=== PATIENT | male | born 1970 | race Hispanic/Latino ===

== ENCOUNTER 2016-10-27 13:05 | Outpatient (CLI) | payer BC ==
[2016-10-27 13:40] LABS: #Basophils 0.1 thou/uL (0.0-0.2); #Eosinphils 0.4 thou/uL (0.0-0.7); #Lymphocytes 1.8 thou/uL (1.20-3.40); #Monocytes 0.7 thou/uL (0.11-0.59); #Neutrophils 3.7 thou/uL (1.40-6.50); %Basophils 1.7 % (0.0-1.0); %Eosinophils 5.9 % (0.0-10.0); %Monocytes 9.7 % (0.0-10.0); Hematocrit 52.7 % (42.0-52.0); Mean Platelet Volume 5.7 fL (7.4-10.4); White Blood Cell (WBC) Count 6.7 thou/uL (4.8-10.8)
[2016-10-27 13:49] LABS: ALT (SGPT) 29 U/L (0-55); AST (SGOT) 19 U/L (5-34); Alkaline Phosphatase 83 U/L (40-150); Anion Gap 19 mmol/L (10-20); BUN (Urea Nitrogen) 13 mg/dL (8.9-20.6); Bilirubin, Total 0.9 mg/dL (0.2-1.2); Calc. Creatinine Clearance 0 mL/min (70-130); Calcium 9.6 mg/dL (7.8-10.44); Carbon Dioxide 26 mmol/L (22-29); Chloride 101 mmol/L (98-107); Estimated GFR-MDRD Greater than 90; Globulin 3.5 g/dL (2.4-3.5); LDL Cholesterol, Calculated 190 mg/dL
[2016-10-27 13:53] LABS: Hemoglobin A1c 6.2 % (4.0-6.0)
[2016-10-27 18:36] LABS: Microalbumin Urine 7.2 mg/dL (0.5-50.0)
== END 2016-10-27 13:06 ==
LOC: HPCALD 13:05
PROVIDERS: ATTEND Family Medicine
DX: E11.59 Type 2 diabetes mellitus with other circulatory complications (principal); I10 Essential (primary) hypertension
CPT/HCPCS: 36415; 80053; 80061; 82043; 82570; 83036; 84443; 85025

== ENCOUNTER 2016-11-03 10:24 | Outpatient (CLI) | payer BC ==
--- NOTE | 2016-11-03 14:15 | MRI ---
MRI OF THE LEFT KNEE WITHOUT CONTRAST: INDICATION: Left knee sprain. COMPARISON: None. FINDINGS: There is a grade II sprain involving the proximal aspect of the MCL. There is a focal contusion inv olving the posterior lateral femoral condyle. The ACL, PCL, LCLC, and extensor mechanism are intact. The medial and lateral menisci are intact. There is mild chondrosis involving the patellar facet on image 21 of the axial series without eviden ce of full-thickness defect. Articular cartilage of the femorotibial compartment appears relatively well maintained. IMPRESSION: 1. Grade II proximal medial collateral ligament sprain. 2. Contusion involving the posterior lateral femoral condyle. 3. The anterior cruciate ligament, posterior cruciate ligament, LCLC, and extensor mechanism are in tact. 4. Medial and lateral menisci are intact. POS: [facility]
== END 2016-11-03 10:25 | disposition home or self-care (01) ==
LOC: BURMRI 10:24
PROVIDERS: ATTEND Family Medicine
DX: S83.92XD Sprain of unspecified site of left knee, subsequent encounter (principal); S83.412D Sprain of medial collateral ligament of left knee, subsequent encounter; S80.02XD Contusion of left knee, subsequent encounter

== ENCOUNTER 2016-11-30 11:48 | Inpatient (IN) | payer BC ==
[2016-11-30] MEDS ORDERED: Ondansetron HCl/PF 4 MG/2 ML Vial ONE (12:04)
[2016-11-30] MEDS ORDERED: Famotidine In NaCl 20 mg/50 ml Premix Bag ONE (12:05)
[2016-11-30 12:24] LABS: Hematocrit 58.2 % (42.0-52.0); Mean Platelet Volume 6.5 fL (7.4-10.4); Red Blood Cell (RBC) Count 6.63 mill/uL (4.70-6.10); White Blood Cell (WBC) Count 10.1 thou/uL (4.8-10.8)
[2016-11-30 12:35] LABS: ALT (SGPT) 78 U/L (0-55); AST (SGOT) 66 U/L (5-34); Alkaline Phosphatase 108 U/L (40-150); Anion Gap 25 mmol/L (10-20); BUN (Urea Nitrogen) 20 mg/dL (8.9-20.6); Bilirubin, Total 0.9 mg/dL (0.2-1.2); Calc. Creatinine Clearance 0 mL/min (70-130); Calcium 9.3 mg/dL (7.8-10.44); Carbon Dioxide 14 mmol/L (22-29); Chloride 95 mmol/L (98-107); Estimated GFR-MDRD 46; Globulin 4.9 g/dL (2.4-3.5); Lipase 98 U/L (8-78); Protein, Total 9.6 g/dL (6.0-8.3)
[2016-11-30 12:47] LABS: Neutrophil 67 % (42-75)
[2016-11-30 13:07] LABS: Troponin I Less than 0.010 ng/mL (< 0.028)
[2016-11-30 13:31] LABS: Lactic Acid - Sepsis 2.2 mmol/L (0.5-2.2)
[2016-11-30 13:34] LABS: Bilirubin Negative (Negative); Blood, Urine Moderate (Negative); Glucose, Urine (Dipstick) >=1000 mg/dL (Negative); Ketone, Urine Negative (Negative); Nitrite Negative (Negative); Protein, Urine (Dipstick) 30 mg/dL (Neg-Trace); Urobilinogen 0.2 mg/dL (0.2-1.0)
[2016-11-30 13:52] LABS: Bacteria/HPF None Seen HPF (None Seen); Squamous Epithelial 0-3 HPF (0-3); WBC/HPF None Seen HPF (0-3)
[2016-11-30] MEDS ORDERED: Potassium Chloride 20 MEQ/100 ML PREMIX BAG ONE (14:06)
[2016-11-30] MEDS ORDERED: Thiamine HCl 200 MG/2 ML VIAL ONE (15:14)
[2016-11-30] MEDS ORDERED: Ciprofloxacin Lactate/D5W 400 mg/200 ml Premix ONE (15:24)
[2016-11-30] MEDS ORDERED: FLU VACC QS2016-17 36MOS UP/PF 0.5 ML SYRINGE IM ONE (16:45)
[2016-11-30] MEDS ORDERED: Ondansetron ODT 4 MG TAB SL PRN (16:46)
[2016-11-30] MEDS ORDERED: Acetaminophen 325 MG TAB PO PRN (16:46)
[2016-11-30] MEDS ORDERED: Ondansetron HCl/PF 4 MG/2 ML Vial IVP PRN (16:46)
[2016-11-30] MEDS ORDERED: HumaLOG 300 UNITS/3 ML VIAL SC PRN (18:26)
[2016-11-30] MEDS ORDERED: Dextrose 50% Abboject 50 ML SYRINGE SLOW IVP PRN (18:26)
[2016-11-30] MEDS ORDERED: Dextrose 5% in Water 1,000 ML IV PRN (18:26)
[2016-11-30] MEDS: NS 0.9% w/ 20 MEQ KCL 1,000 ML IV SCH (19:47)
[2016-11-30] MEDS: Carvedilol 3.125 MG TAB PO SCH (20:53)
[2016-11-30 21:29] LABS: Anion Gap 14 mmol/L (10-20)
[2016-11-30 21:35] LABS: ALT (SGPT) 47 U/L (0-55); AST (SGOT) 33 U/L (5-34); Alkaline Phosphatase 66 U/L (40-150); BUN (Urea Nitrogen) 13 mg/dL (8.9-20.6); Bilirubin, Total 0.7 mg/dL (0.2-1.2); Calc. Creatinine Clearance 0 mL/min (70-130); Calcium 7.4 mg/dL (7.8-10.44); Carbon Dioxide 18 mmol/L (22-29); Chloride 108 mmol/L (98-107); Estimated GFR-MDRD Greater than 90; Protein, Total 6.3 g/dL (6.0-8.3)
[2016-11-30 22:01] LABS: #Basophils 0.1 thou/uL (0.0-0.2); #Eosinphils 0.2 thou/uL (0.0-0.7); Hematocrit 40.7 % (42.0-52.0); Mean Platelet Volume 6.3 fL (7.4-10.4); Red Blood Cell (RBC) Count 4.78 mill/uL (4.70-6.10); White Blood Cell (WBC) Count 7.2 thou/uL (4.8-10.8)
[2016-11-30 22:05] LABS: #Monocytes 1.3 thou/uL (0.11-0.59); #Neutrophils 3.5 thou/uL (1.40-6.50); %Basophils 1.6 % (0.0-1.0); %Eosinophils 2.9 % (0.0-10.0); %Monocytes 17.4 % (0.0-10.0)
[2016-11-30 22:34] LABS: Lipase 26 U/L (8-78)
[2016-11-30 23:06] LABS: Bilirubin Negative (Negative); Blood, Urine Small (Negative); Glucose, Urine (Dipstick) 500 mg/dL (Negative); Ketone, Urine Negative (Negative); Nitrite Negative (Negative); Protein, Urine (Dipstick) Negative (Neg-Trace); Urobilinogen 0.2 mg/dL (0.2-1.0)
[2016-11-30 23:16] LABS: RBC/HPF 0-3 HPF (0-3); Squamous Epithelial 0-3 HPF (0-3); WBC/HPF 0-3 HPF (0-3)
[2016-11-30 23:17] LABS: Bacteria/HPF Rare-Few HPF (None Seen)
[2016-12-01] MEDS: NS 0.9% w/ 20 MEQ KCL 1,000 ML IV SCH ×5 (02:58→15:42)
[2016-12-01 06:18] LABS: #Basophils 0.1 thou/uL (0.0-0.2); #Eosinphils 0.3 thou/uL (0.0-0.7); #Lymphocytes 2.4 thou/uL (1.20-3.40); #Monocytes 0.9 thou/uL (0.11-0.59); #Neutrophils 2.4 thou/uL (1.40-6.50); %Eosinophils 4.8 % (0.0-10.0); %Monocytes 14.8 % (0.0-10.0); Hematocrit 38.8 % (42.0-52.0); Mean Platelet Volume 6.6 fL (7.4-10.4); White Blood Cell (WBC) Count 6.1 thou/uL (4.8-10.8)
[2016-12-01 06:59] LABS: ALT (SGPT) 43 U/L (0-55); AST (SGOT) 35 U/L (5-34); Alkaline Phosphatase 63 U/L (40-150); Anion Gap 14 mmol/L (10-20); BUN (Urea Nitrogen) 11 mg/dL (8.9-20.6); Bilirubin, Total 0.8 mg/dL (0.2-1.2); Calc. Creatinine Clearance 0 mL/min (70-130); Calcium 7.5 mg/dL (7.8-10.44); Carbon Dioxide 22 mmol/L (22-29); Chloride 104 mmol/L (98-107); Estimated GFR-MDRD Greater than 90; Globulin 2.5 g/dL (2.4-3.5); Protein, Total 5.6 g/dL (6.0-8.3)
[2016-12-01] MEDS: Lisinopril 10 MG TAB PO SCH (09:09)
[2016-12-01] MEDS: Carvedilol 3.125 MG TAB PO SCH ×2 (09:09→21:25)
[2016-12-01] MEDS: VENLAFAXINE HCL 25 MG PO SCH (09:13)
[2016-12-01] MEDS: HumaLOG 300 UNITS/3 ML VIAL SC PRN ×2 (12:32→18:41)
--- NOTE | 2016-12-01 13:32 | HP ---
CHIEF COMPLAINT: Nausea and vomiting. HISTORY OF PRESENT ILLNESS: Mr. Lin is a 46-year-old male who presented to the emergency room with several days of onset of nausea, vomiting and diarrhea. The patient states that on approximately 11/26, he started with some abdominal cramping and vomiting and diarrhea, specifically after eating. This progressed to the point where he was dehydrated and lethargic with generalized weakness. In the ER, he was found to be grossly dehydrated with electrolyte abnormalities and concentrated hematocrit. Therefore, the patient has been admitted with clinical suspicion of infectious gastroenteritis. Besides generalized abdominal cramping after meals, the patient has had no abdominal pain. He denied hematochezia or melena. No hematemesis or bilious emesis. He has been afebrile throughout the episode. Other than his GI complaints, the patient denies any other concurrent complaints. PAST MEDICAL HISTORY: 1. Cardiomyopathy. 2. Type 2 diabetes. 3. Diabetic neuropathy. 4. Hyperlipidemia. 5. Gastroesophageal reflux disease. 6. Essential hypertension. 7. Erectile dysfunction. 8. Allergic rhinitis. 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 FAMILY HISTORY: Father is living with a history of diabetes, hypertension and coronary artery disease. Mother is living with a history of diabetes and hypertension. The patient has a brother with diabetes and a sister with diabetes. SOCIAL HISTORY: The patient is a nonsmoker. He has occasional alcohol use, 3- 4 drinks per episode with zero occasions of 6 or more drinks in one occasion in the past year. No illicit drug use. 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 MEDICATIONS: 1. Aspirin 81 mg p.o. q. day. 2. Carvedilol 3.125 mg p.o. b.i.d. 3. Atorvastatin 20 mg p.o. q. day. 4. Farxiga 10 mg p.o. at bedtime. 5. Dicyclomine 10 mg p.o. b.i.d. 6. Effexor 25 mg p.o. q. day. 7. Metformin 500 mg p.o. b.i.d. ALLERGIES: No known drug allergies. REVIEW OF SYSTEMS: GENERAL: The patient denies fever. Positive fatigue/lethargy/sweating. No chills. 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 No increase in blurred vision or visual disturbances. Denies eye pain. The patient denies nasal congestion, sore throat or ear pain. CARDIOVASCULAR: The patient denies chest pain, orthopnea, paroxysmal nocturnal dyspnea or dyspnea on exertion. RESPIRATORY: The patient denies cough, hemoptysis, sputum production, positive allergies. Denies sneezing. Denies shortness of breath. GASTROINTESTINAL: As per HPI. Denies constipation. GENITOURINARY: Decreased urinary amounts. Decreased urinary frequency since the episode. Denies dysuria, symptoms of incomplete emptying or gross hematuria. LYMPHATIC: The patient denies swelling. HEMATOLOGIC: The patient denies bleeding or bruising. NEUROLOGIC: Denies numbness, paresthesias, focal weakness, speech disturbance. PHYSICAL EXAMINATION: VITAL SIGNS: Temperature is 98.7, heart rate 70, respirations 20, O2 sat 99% on room air and blood pressure 131/83. GENERAL: A well-developed, well-nourished male, in no acute distress. He is alert and oriented x3. HEENT: A nucleated right eye. Left pupil is reactive to light. Nares are patent without discharge. Tongue protrudes on the midline. NECK: Supple, without lymphadenopathy, thyromegaly, JVD or bruit. HEART: Regular rate and rhythm. Normal S1 and S2. No murmurs, clicks, rubs or gallops. LUNGS: Clear to auscultation with good air entry bilaterally. No crackles or wheezes. ABDOMEN: Hyperactive bowel sounds in all four quadrants. Soft, slightly distended and slightly tense. No masses, guarding or rebound tenderness. EXTREMITIES: No cyanosis, clubbing or edema. NEUROLOGIC: Cranial nerves II-XII are grossly intact. No focal deficits. LABORATORY DATA: CBC on admission, white count 10.1, hemoglobin 20.9, hematocrit 58.2 , platelets 347, 67% neutrophils, 19% lymphocytes, 8% monocytes , 3% eosinophils and 3% basophils. Sodium 137, potassium 2.6, chloride 108, bicarbonate 18, BUN 13, creatinine 0.87, glucose 118, AST 33, ALT 47, alkaline phosphatase 66, CK-MB 0.7 and troponin I less than 0.01, BNP 11.1. Urinalysis is significant for 30 protein, greater than 1000 glucose, negative ketones and moderate blood. Repeat urinalysis later in the afternoon is significant for 500 glucose and small blood, otherwise negative. C. diff is negative. Stool occult blood negative. Stool culture still in progress, Campylobacter and Shiga toxin are negative. Giardia is negative. Cryptosporidium parvum is positive. Repeat lab this morning at 6:00 a.m., white count 6.1, hemoglobin 13.9, hematocrit 38.8 and platelets 214. Sodium 137, potassium 2.9, chloride 104, bicarbonate 22, BUN 11 and creatinine 0.85, glucose 111, AST 35, ALT 43 and alkaline phosphatase 63. ASSESSMENT AND PLAN: 1. Cryptosporidium infectious gastroenteritis. The patient was hydrated with 3 liters of normal saline in the Emergency Department with correction of his hemoglobin and hematocrit. Potassium was put in his normal saline IV infusion overnight at 125 mL per hour. We will cut this back this morning to 100 mL per hour. We will introduce clear liquids as the patient is feeling slightly better this morning. He was kept n.p.o. overnight. If he does not tolerate this, we will return to n.p.o. except meds. We will obtain acute abdominal series due to his tense abdomen. We will treat his nausea, vomiting and diarrhea with antiemetics and antidiarrheal agents. We will treat his infection appropriately. He was started on Cipro overnight. His treatment will be directed more specifically toward Cryptosporidium. The patient at this time is not aware of where he may have contracted this. We will follow reporting procedures per protocol. We will place the patient on Protonix 40 mg daily. We will continue to follow blood cultures. 2. Hyponatremia and hypokalemia. This is due to GI losses. His sodium corrected. Potassium will continue through his IV fluids until he can tolerate oral. Will recheck BMP in a.m. 3. Type 2 diabetes. The patient's Farxiga and metformin will be held. He was placed on a sliding scale mild and bedtime algorithm with Accu-Cheks q.a.c. and at bedtime. We will monitor his glucose closely. We will advance to an ADA diet when appropriate. 4. Cardiomyopathy. The patient's aspirin and beta nakul will be continued. 5. Hyperlipidemia. The patient's statin will be continued. 6. Gastroesophageal reflux disease. Proton pump inhibitor as per above. 7. Prophylaxis. Proton pump inhibitor as per above. The patient is currently ambulatory, so no deep venous thrombosis prophylaxis is indicated at this time. CODE STATUS: FULL CODE. MTDD
--- NOTE | 2016-12-01 19:48 | RAD ---
ACUTE ABDOMEN SERIES: Date: 12-01-16 FINDINGS: Supine and erect views show no free air beneath the diaphragm. There is no sign of obstruction. Ga s is present in colon and in minimally distended small bowel. The pattern is nonspecific and more t ypical of an ileus than obstruction. There is abundant fecal material in the colon and the colon it self seems somewhat redundant. Clips are noted in the right upper quadrant from a prior operative p rocedure. No calcifications of concern were seen elsewhere. A chest film in the series is compared with a 09-08-16 study. The heart is normal in size and the l ungs are clear. IMPRESSION: Nonspecific abdominal finding. POS: HOME
[2016-12-01] MEDS ORDERED: ALINIA PO SCH (21:00)
[2016-12-02] MEDS: NS 0.9% w/ 20 MEQ KCL 1,000 ML IV SCH ×2 (01:28→04:11)
[2016-12-02 06:15] VITALS: TEMP 97.5
[2016-12-02 06:24] LABS: #Basophils 0.1 thou/uL (0.0-0.2); #Eosinphils 0.4 thou/uL (0.0-0.7); #Lymphocytes 2.5 thou/uL (1.20-3.40); #Monocytes 0.8 thou/uL (0.11-0.59); #Neutrophils 1.7 thou/uL (1.40-6.50); %Basophils 1.6 % (0.0-1.0); %Eosinophils 6.7 % (0.0-10.0); %Monocytes 14.3 % (0.0-10.0); Hematocrit 38.7 % (42.0-52.0); Red Blood Cell (RBC) Count 4.36 mill/uL (4.70-6.10); White Blood Cell (WBC) Count 5.3 thou/uL (4.8-10.8)
[2016-12-02 06:54] LABS: Anion Gap 12 mmol/L (10-20); BUN (Urea Nitrogen) 7 mg/dL (8.9-20.6); Calc. Creatinine Clearance 0 mL/min (70-130); Calcium 8.2 mg/dL (7.8-10.44); Carbon Dioxide 26 mmol/L (22-29); Chloride 105 mmol/L (98-107); Estimated GFR-MDRD Greater than 90
[2016-12-02] MEDS: Lisinopril 10 MG TAB PO SCH (09:47)
[2016-12-02] MEDS: Carvedilol 3.125 MG TAB PO SCH ×2 (09:47→21:52)
[2016-12-02] MEDS: VENLAFAXINE HCL 25 MG PO SCH (12:34)
[2016-12-02] MEDS ORDERED: Potassium Chloride 20 MEQ TAB PO SCH (12:45)
[2016-12-02] MEDS: HumaLOG 300 UNITS/3 ML VIAL SC PRN (13:57)
[2016-12-02 22:39] VITALS: BMI 27.3
[2016-12-03 06:27] VITALS: BP 110/70
[2016-12-03] MEDS: Lisinopril 10 MG TAB PO SCH (09:05)
[2016-12-03] MEDS: Carvedilol 3.125 MG TAB PO SCH (09:07)
[2016-12-03] MEDS: HumaLOG 300 UNITS/3 ML VIAL SC PRN ×2 (09:09→13:20)
[2016-12-03] MEDS: VENLAFAXINE HCL 25 MG PO SCH (09:13)
[2016-12-03 09:24] LABS: Anion Gap 13 mmol/L (10-20); BUN (Urea Nitrogen) 8 mg/dL (8.9-20.6); Calc. Creatinine Clearance 125 mL/min (70-130); Calcium 9.2 mg/dL (7.8-10.44); Carbon Dioxide 30 mmol/L (22-29); Chloride 101 mmol/L (98-107); Estimated GFR-MDRD Greater than 90
[2016-12-03 13:20] LABS: Anion Gap 12 mmol/L (10-20); BUN (Urea Nitrogen) 7 mg/dL (8.9-20.6); Calc. Creatinine Clearance 132 mL/min (70-130); Carbon Dioxide 28 mmol/L (22-29); Chloride 102 mmol/L (98-107); Estimated GFR-MDRD Greater than 90
--- NOTE | 2016-12-03 20:58 | DIS ---
DATE OF ADMISSION: 11/30/2016 DATE OF DISCHARGE: 12/03/2016 ADMISSION DIAGNOSES: 1. Acute gastroenteritis. 2. Hyponatremia. 3. Hypokalemia. 4. Chronic type 2 diabetes. 5. Chronic cardiomyopathy. 6. Chronic hypertension. DISCHARGE DIAGNOSES: 1. Gastroenteritis due to cryptosporidium. 2. Dehydration with hyponatremia, resolved. 3. Hypokalemia due to gastrointestinal losses, improving. 4. Chronic type 2 diabetes. 5. Chronic cardiomyopathy. 6. Chronic hypertension. ATTENDING PHYSICIAN: Dr. Nahomy Ring. PROCEDURES: 1. Acute abdominal series performed on 12/01/2016, which showed nonspecific abdominal findings. 2. Chemistry profile on the date of admission sodium 131, potassium 2.8, bicarbonate 14, chloride 9 5, BUN 20, creatinine 1.64, glucose 288, calcium 9.3. AST 66, ALT 78, alkaline phosphatase 108, lip ase 98, BNP 11.1. Troponin I is less than 0.01, CK-MB is 0.7, lactic acid 2.2. Repeat lactic acid 11/30 is 1.3. 3. Liver function test 11/30 improved to 33 and 47. 4. Urinalysis initially significant for 30 protein, greater than 1000 glucose, moderate blood. Rep eat urinalysis later on the date of admission with 500 glucose and small blood. Negative ketones. 5. Human immunodeficiency virus 1 and 2 antigen and antibody nonreactive on 12/01. 6. CBC on the date of admission with white count 10.1, hemoglobin 20.9, hematocrit 58.2, platelets 347. 7. Repeat CBC on 12/02, the day prior to discharge was white count 5.3, hemoglobin 14.3, hematocrit 38.7, platelets 217. 8. Chemistry profile on the date of discharge sodium 141, potassium 2.8, chloride 101, bicarbonate 30, BUN 8 and creatinine 0.85. HISTORY AND PHYSICAL EXAMINATION: Please see dictated report from the date of admission. HOSPITAL COURSE: Mr. Lin is a 46-year-old male with past medical history of cardiomyopathy, hy pertension, and type 2 diabetes that is not insulin-dependent, who presented to the ER with approxim ately 4-5 days of continuous nausea, vomiting, and diarrhea. He was found to be severely volume con tracted with elevated hemoglobin and hematocrit, hyponatremia with sodium of 131, and hypokalemia wi th potassium of 2.8 secondary to his gastrointestinal losses. The patient was given IV fluid bolus in the ER, which corrected his renal dysfunction in his hyponatremia. This was continued through ho tal day #3 and potassium was added for his hypokalemia. His potassium subsequently improved to 3 .1. However, it decreased to 2.8 without oral supplementation on 12/03. Therefore, the patient claudine l be getting an additional dose of potassium prior to his discharge. We will repeat his metabolic p rofile. If his potassium is improving, he will be discharged to home with oral potassium and in ord er to repeat his metabolic profile in my clinic later this week. Of note, throughout the patient's hospital course, his vomiting and diarrhea improved. Stool studie s came back negative for C. Diff, negative for Shigella. Normal enteric luci per culture. Fecal o ccult blood negative. Stool O\T\P were significant for Cryptosporidium parvum. Negative for Giardi a. I spoke with the Infectious Disease, it was recommended that the patient be started on Alinia. At the time of his discharge, he has received 4 tablets out of his 6 tablet treatment course, which was twice a day for 3 days. He will finish this as an outpatient. His nausea has completely resolv ed. His acute abdominal series showed nonspecific abdominal findings. He does have some formed sto ol prior to his discharge. He initially was on clear liquids and this has been advanced to a regula r diet without difficulty. Regarding his diabetes, the patient's glucose was stable throughout his admission. His metformin an d Farxiga were held due to his gastrointestinal distress. Now that this is resolved, these medicati ons can be resumed as an outpatient. Patient with history of cardiomyopathy, but experienced no respiratory abnormalities or signs of flu id overload despite copious IV fluid resuscitation. He will resume his home regimen at discharge. DISPOSITION: Discharged to home following a repeat basic metabolic profile after another dose of po tassium today. CONDITION: Good. DISCHARGE MEDICATIONS: 1. Carvedilol 6.25 mg p.o. b.i.d. 2. Bentyl 10 mg p.o. b.i.d. 3. Lisinopril 10 mg p.o. daily. 4. Glucophage 500 mg p.o. b.i.d. 5. Alinia 500 mg p.o. b.i.d. to complete a 3-day course. 6. Zofran ODT 4 mg sublingually q.6 hours p.r.n. 7. Effexor XR 25 mg daily. 8. Aspirin 81 mg p.o. daily. 9. Lipitor 20 mg p.o. daily. 10. Farxiga 10 mg p.o. at bedtime. 11. K-Dur 40 mEq p.o. daily x3 days. FOLLOWUP: Will be with me Dr. Nahomy Ring his primary care physician in approximately 7 days. He will present to clinic on 12/05 for repeat basic metabolic profile to check his potassium.
== END 2016-12-03 15:00 | disposition home or self-care (01) | DRG 372 ==
LOC: BURERS 11:48 → BURMED 14:55
PROVIDERS: ADMIT Family Medicine; ATTEND Family Medicine
DX: A07.2 Cryptosporidiosis (principal); E87.1 Hypo-osmolality and hyponatremia; I42.9 Cardiomyopathy, unspecified; E11.40 Type 2 diabetes mellitus with diabetic neuropathy, unspecified; E86.0 Dehydration; E87.6 Hypokalemia; I10 Essential (primary) hypertension; E78.5 Hyperlipidemia, unspecified; K21.9 Gastro-esophageal reflux disease without esophagitis; J30.9 Allergic rhinitis, unspecified; N52.9 Male erectile dysfunction, unspecified; N28.9 Disorder of kidney and ureter, unspecified
CPT/HCPCS: 36415; 36416; 74022; 80048; 80053; 81003; 81015; 82274; 82553; 83605; 83690; 83880; 84484; 85025; 87015; 87045; 87046; 87324; 87328; 87329; 87389; 87449; 87899; 96361; 96365; 96367; 96375; A4216; J0744; J2405; J3411; J3480

== ENCOUNTER 2016-12-08 10:30 | Outpatient (CLI) | payer BC ==
[2016-12-08 12:21] LABS: ALT (SGPT) 46 U/L (0-55); AST (SGOT) 28 U/L (5-34); Alkaline Phosphatase 92 U/L (40-150); Bilirubin, Direct 0.2 mg/dL (0.1-0.3); Bilirubin, Total 0.6 mg/dL (0.2-1.2); LDL Cholesterol, Calculated 98 mg/dL; Protein, Total 7.6 g/dL (6.0-8.3)
[2016-12-08 13:47] LABS: Anion Gap 17 mmol/L (10-20); BUN (Urea Nitrogen) 11 mg/dL (8.9-20.6); Calc. Creatinine Clearance 0 mL/min (70-130); Calcium 9.8 mg/dL (7.8-10.44); Carbon Dioxide 28 mmol/L (22-29); Chloride 100 mmol/L (98-107); Estimated GFR-MDRD Greater than 90
== END 2016-12-08 10:31 | disposition home or self-care (01) ==
LOC: HPCALD 10:30
PROVIDERS: ATTEND Family Medicine
DX: E78.2 Mixed hyperlipidemia (principal)
CPT/HCPCS: 36415; 80048; 80061; 80076

== ENCOUNTER 2017-08-08 21:13 | Emergency (ER) | payer BC, OTHER ==
[2017-08-08] MEDS ORDERED: Ibuprofen 800 MG TAB ONE (21:38)
[2017-08-08] MEDS ORDERED: HYDROcodone/Acetaminophen 10/325 mg Tablet ONE (21:38)
--- NOTE | 2017-08-08 23:06 | RAD ---
LEFT LEG TWO VIEWS 08/08/17 No fracture was seen. The tibia and fibula appear normal. No traumatic changes were seen. IMPRESSION: No significant findings. POS: HOME
== END 2017-08-08 22:13 | disposition home or self-care (01) ==
LOC: BURERS 21:13
DX: S80.02XA Contusion of left knee, initial encounter (principal); E11.9 Type 2 diabetes mellitus without complications; K21.9 Gastro-esophageal reflux disease without esophagitis; E78.5 Hyperlipidemia, unspecified; I11.0 Hypertensive heart disease with heart failure; I50.9 Heart failure, unspecified; F17.220 Nicotine dependence, chewing tobacco, uncomplicated; Z79.82 Long term (current) use of aspirin; Z79.84 Long term (current) use of oral hypoglycemic drugs; Z79.899 Other long term (current) drug therapy; W31.89XA Contact with other specified machinery, initial encounter; Y92.69 Other specified industrial and construction area as the place of occurrence of the external cause

== ENCOUNTER 2017-11-24 18:12 | Emergency (ER) | payer BC | END 2017-11-24 18:40 | disposition home or self-care (01) | LOC: BURERS 18:12 | DX: F41.9 Anxiety disorder, unspecified (principal); G44.209 Tension-type headache, unspecified, not intractable; E11.9 Type 2 diabetes mellitus without complications; K21.9 Gastro-esophageal reflux disease without esophagitis; E78.5 Hyperlipidemia, unspecified; I11.0 Hypertensive heart disease with heart failure; I50.9 Heart failure, unspecified; F17.220 Nicotine dependence, chewing tobacco, uncomplicated; Z79.82 Long term (current) use of aspirin; Z79.84 Long term (current) use of oral hypoglycemic drugs; Z79.899 Other long term (current) drug therapy | CPT/HCPCS: 99283 ==

== ENCOUNTER 2018-05-14 21:21 | Emergency (ER) | payer BC ==
[2018-05-14] MEDS ORDERED: Amoxicillin/Potassium Clav 875 MG TAB ONE (21:36)
[2018-05-14] MEDS ORDERED: traMADol HCl 50 MG TAB ONE (21:38)
--- NOTE | 2018-05-14 22:58 | RAD ---
LEFT FOOT THREE VIEWS: 05/04/18 No fracture or dislocation was seen. the toes all appeared intact. There were no bony destructive le david of the toes to suggest osteomyelitis. IMPRESSION: No acute bony finding. POS: HOME
== END 2018-05-14 22:10 | disposition home or self-care (01) ==
LOC: BURERS 21:21
DX: S90.32XA Contusion of left foot, initial encounter (principal); L03.032 Cellulitis of left toe; I11.0 Hypertensive heart disease with heart failure; I50.9 Heart failure, unspecified; E78.5 Hyperlipidemia, unspecified; E11.9 Type 2 diabetes mellitus without complications; K21.9 Gastro-esophageal reflux disease without esophagitis; F17.220 Nicotine dependence, chewing tobacco, uncomplicated; F41.9 Anxiety disorder, unspecified; F32.9 Major depressive disorder, single episode, unspecified; Z79.899 Other long term (current) drug therapy; Z79.84 Long term (current) use of oral hypoglycemic drugs; Z79.82 Long term (current) use of aspirin; X50.1XXA Overexertion from prolonged static or awkward postures, initial encounter

== ENCOUNTER 2018-05-27 21:54 | Emergency (ER) | payer BC | END 2018-05-27 22:22 | disposition home or self-care (01) | LOC: BURERS 21:54 | DX: S92.501A Displaced unspecified fracture of right lesser toe(s), initial encounter for closed fracture (principal); E11.9 Type 2 diabetes mellitus without complications; K21.9 Gastro-esophageal reflux disease without esophagitis; E78.5 Hyperlipidemia, unspecified; I11.0 Hypertensive heart disease with heart failure; I50.9 Heart failure, unspecified; F41.9 Anxiety disorder, unspecified; F32.9 Major depressive disorder, single episode, unspecified; Z79.899 Other long term (current) drug therapy; Z79.82 Long term (current) use of aspirin; Z79.84 Long term (current) use of oral hypoglycemic drugs; W22.8XXA Striking against or struck by other objects, initial encounter | CPT/HCPCS: 99283 ==

== ENCOUNTER 2018-08-06 16:00 | Emergency (ER) | payer BC ==
[2018-08-06] MEDS ORDERED: Ibuprofen 200 MG TAB ONE (16:17)
--- NOTE | 2018-08-06 17:31 | RAD ---
LEFT HUMERUS TWO VIEWS: 08/06/18 No fracture was seen. The humerus appeared intact. IMPRESSION: No acute finding. POS: HOME
== END 2018-08-06 16:33 | disposition home or self-care (01) ==
LOC: BURERS 16:00
DX: S46.912A Strain of unspecified muscle, fascia and tendon at shoulder and upper arm level, left arm, initial encounter (principal); F41.9 Anxiety disorder, unspecified; F32.9 Major depressive disorder, single episode, unspecified; K21.9 Gastro-esophageal reflux disease without esophagitis; E78.5 Hyperlipidemia, unspecified; I11.0 Hypertensive heart disease with heart failure; I50.9 Heart failure, unspecified; Z79.84 Long term (current) use of oral hypoglycemic drugs; Z79.899 Other long term (current) drug therapy; X50.1XXA Overexertion from prolonged static or awkward postures, initial encounter

== ENCOUNTER 2018-08-31 08:56 | Emergency (ER) | payer BC, OTHER, SELFPAY ==
[2018-08-31] MEDS ORDERED: Ketorolac Tromethamine 60 MG/2 ML VIAL ONE (09:14)
[2018-08-31] MEDS ORDERED: Acetaminophen/Codeine 30-300mg Tablet ONE (09:14)
--- NOTE | 2018-08-31 09:43 | RAD ---
3 VIEWS LEFT FOOT: Date: 08/31/18 COMPARISON: 05/14/18. HISTORY: Trauma. Crush injury. FINDINGS: Lisfranc alignment is maintained. There is soft tissue swelling. There are fractures involving the pr oximal aspect of the proximal phalanx of the third digit. There are fractures along the third and fif th metatarsals. IMPRESSION: Multiple fractures involving the left foot. POS: [facility]
== END 2018-08-31 10:05 | disposition home or self-care (01) ==
LOC: BURERS 08:56
DX: S92.335A Nondisplaced fracture of third metatarsal bone, left foot, initial encounter for closed fracture (principal); S92.355A Nondisplaced fracture of fifth metatarsal bone, left foot, initial encounter for closed fracture; E11.9 Type 2 diabetes mellitus without complications; I11.0 Hypertensive heart disease with heart failure; I50.9 Heart failure, unspecified; K21.9 Gastro-esophageal reflux disease without esophagitis; E78.5 Hyperlipidemia, unspecified; F32.9 Major depressive disorder, single episode, unspecified; Z87.891 Personal history of nicotine dependence; Z79.899 Other long term (current) drug therapy; Z79.82 Long term (current) use of aspirin; Z79.84 Long term (current) use of oral hypoglycemic drugs; W20.8XXA Other cause of strike by thrown, projected or falling object, initial encounter
CPT/HCPCS: 29515; 96372; J1885

== ENCOUNTER 2019-02-24 12:01 | Outpatient (CLI) | payer BC ==
--- NOTE | 2019-02-24 12:27 | RAD ---
EXAM: Chest 2 views: HISTORY: Erythema nodosum COMPARISON: None. FINDINGS: There is a normal-sized cardiomediastinal silhouette. There is no evidence of consolidation, mass, or pleural effusion. The bones are unremarkable. IMPRESSION: No evidence of acute cardiopulmonary disease
[2019-02-24 15:48] LABS: #Basophils 0.1 thou/uL (0.0-0.2); #Eosinphils 0.4 thou/uL (0.0-0.7); #Lymphocytes 1.6 thou/uL (1.20-3.40); #Monocytes 0.8 thou/uL (0.11-0.59); #Neutrophils 5.2 thou/uL (1.40-6.50); %Basophils 1.1 % (0.0-1.0); %Eosinophils 5.1 % (0.0-10.0); %Lymphocytes 19.8 % (21.0-51.0); %Monocytes 9.5 % (0.0-10.0); %Neutrophils 64.6 % (42.0-75.0); Hemoglobin 13.3 g/dL (14.0-18.0); Mean Corpuscular HGB CONC 34.7 g/dL (32.0-36.0); Mean Corpuscular Hemoglobin 30.9 pg (27.0-31.0); Mean Corpuscular Volume 88.8 fL (78.0-98.0); Mean Platelet Volume 6.8 fL (7.4-10.4); Platelet Count 312 thou/uL (130-400); RBC Distribution Width 11.4 % (11.5-14.5); Red Blood Cell (RBC) Count 4.31 mill/uL (4.70-6.10)
[2019-02-24 16:20] LABS: Hemoglobin A1c 7.1 % (4.0-6.0)
== END 2019-02-24 12:02 | disposition home or self-care (01) ==
LOC: BURRAD 12:01
PROVIDERS: ATTEND Family Medicine
DX: L52 Erythema nodosum (principal); E11.59 Type 2 diabetes mellitus with other circulatory complications
CPT/HCPCS: 36415; 71046; 83036; 85025; 85652; 86060; 86140; 87081; 87430

== ENCOUNTER 2020-03-28 18:14 | Emergency (ER) | payer SELFPAY ==
[2020-03-28] MEDS ORDERED: Silver Nitrate Application 1 EACH ONE ×2 (18:29→18:31)
== END 2020-03-28 18:43 | disposition home or self-care (01) ==
LOC: BURERS 18:14
DX: L92.9 Granulomatous disorder of the skin and subcutaneous tissue, unspecified (principal); I11.0 Hypertensive heart disease with heart failure; I50.9 Heart failure, unspecified; E11.9 Type 2 diabetes mellitus without complications; K21.9 Gastro-esophageal reflux disease without esophagitis; E78.5 Hyperlipidemia, unspecified; E78.00 Pure hypercholesterolemia, unspecified; F32.9 Major depressive disorder, single episode, unspecified; Z79.899 Other long term (current) drug therapy; Z79.84 Long term (current) use of oral hypoglycemic drugs; Z79.82 Long term (current) use of aspirin
CPT/HCPCS: 17250

== ENCOUNTER 2020-09-13 21:24 | Emergency (ER) | payer SELFPAY ==
[~2020-09-13 21:24] MED LIST: Iopamidol 370 76% 100 ML VIAL ONE
[2020-09-13] MEDS ORDERED: Morphine 2 MG/ML VIAL ONE (21:44)
[2020-09-13] MEDS ORDERED: diphenhydrAMINE 12.5 MG/5 ML UDCUP ONE (21:44)
[2020-09-13] MEDS ORDERED: diphenhydrAMINE 50 MG/ML VIAL ONE (21:45)
[2020-09-13 21:49] LABS: #Basophils 0.2 thou/uL (0.0-0.2); #Eosinphils 0.6 thou/uL (0.0-0.7); #Lymphocytes 3.6 thou/uL (1.20-3.40); #Monocytes 0.8 thou/uL (0.11-0.59); #Neutrophils 5.2 thou/uL (1.40-6.50); %Basophils 1.7 % (0.0-1.0); %Eosinophils 5.9 % (0.0-10.0); %Lymphocytes 35.1 % (21.0-51.0); %Monocytes 7.3 % (0.0-10.0); Hemoglobin 15.5 g/dL (14.0-18.0); Mean Corpuscular HGB CONC 34.3 g/dL (32.0-36.0); Mean Corpuscular Hemoglobin 31.3 pg (27.0-31.0); Mean Corpuscular Volume 91.4 fL (78.0-98.0); Mean Platelet Volume 7.6 fL (7.4-10.4); Platelet Count 233 thou/uL (130-400); RBC Distribution Width 11.4 % (11.5-14.5); Red Blood Cell (RBC) Count 4.94 mill/uL (4.70-6.10); White Blood Cell (WBC) Count 10.3 thou/uL (4.8-10.8)
[2020-09-13 21:53] LABS: Bilirubin Negative (Negative); Blood, Urine Negative (Negative); Clarity Clear (Clear); Glucose, Urine (Dipstick) 500 mg/dL (Negative); Ketone, Urine Negative (Negative); Leukocyte Negative (Negative); Nitrite Negative (Negative); Protein, Urine (Dipstick) Negative (Neg-Trace); Urobilinogen 0.2 mg/dL (Less than 2); pH, Urine 6.5 (5.0-9.0)
[2020-09-13 21:54] LABS: Specific Gravity, Urine 1.004 (1.002-1.036)
[2020-09-13 22:05] LABS: ALT (SGPT) 45 U/L (8-55); AST (SGOT) 34 U/L (5-34); Albumin 4.3 g/dL (3.5-5.0); Alkaline Phosphatase 117 U/L (40-110); Anion Gap 15 mmol/L (10-20); BUN (Urea Nitrogen) 7 mg/dL (8.9-20.6); Bilirubin, Total 0.6 mg/dL (0.2-1.2); Calc. Creatinine Clearance 0 mL/min (70-130); Carbon Dioxide 28 mmol/L (22-29); Chloride 91 mmol/L (98-107); Globulin 3.6 g/dL (2.4-3.5); Glucose 251 mg/dL (70-105); Lipase 57 U/L (8-78); Potassium 3.4 mmol/L (3.5-5.1); Protein, Total 7.9 g/dL (6.0-8.3); Sodium 131 mmol/L (136-145)
[2020-09-13 22:07] LABS: Amphetamine Not Detected (NotDetected); Barbiturates Screen Not Detected (NotDetected); Benzodiazepine Screen Not Detected (NotDetected); Cocaine Metabolite Screen Not Detected (NotDetected); Medtox Control Line Valid? VALID (VALID); Methadone Not Detected (NotDetected); Methamphetamine Not Detected (NotDetected); Opiate Screen Not Detected (NotDetected); Oxycodone Screen Not Detected (NotDetected); Phencyclidine (PCP) Not Detected (NotDetected); THC/Cannabinoid Screen Not Detected (NotDetected); Tricyclic Screen Not Detected (NotDetected)
[2020-09-13 22:09] LABS: Acetaminophen Less than 6.0 mcg/mL (10.0-30.0); Alcohol 205 mg/dL (Less than 10); Salicylate Less than 8.0 mg/dL (15.0-30.0)
[2020-09-13 22:10] LABS: INR-International Normal Ratio 0.9; Prothrombin Time 12.7 sec (12.0-14.7)
[2020-09-13] MEDS ORDERED: Pantoprazole 40 MG VIAL ONE (23:09)
[2020-09-13] MEDS ORDERED: Mag-Al Plus 1200 MG/1200 MG/120 MG/30 ML UDCUP ONE (23:09)
[2020-09-13] MEDS ORDERED: Lidocaine Viscous Sol 2% 15 ml UD Cup ONE (23:09)
--- NOTE | 2020-09-14 07:11 | CT ---
PRELIMINARY REPORT/[facility]/EMERGENCY AFTER HOURS PROCEDURE: CT ABDOMEN PELVIS _PRELIMINARY REPORT CLINICAL HISTORY : LLQ ABD PAIN THAT STARTED 3 DAYS AGO, ER PT, (Hx) / pain (DICOM Hx) TECHNIQUE: Axial images were obtained with IV contrast. Coronal and sagittal reconstructions were reviewed. COMPARISON: Prior images are available dated July 30, 2015 CT ABDOMEN: The visualized portions of the lung bases are unremarkable. There is diffuse fatty infiltration of the liver.There has been a cholecystectomy. The pancreas is no rmal. The spleen is normal. The aorta is unremarkable in size for age. The adrenal glands are normal . The kidneys are normal in size and location without hydronephrosis. Right ureteral ectasia. There is no evidence of ureteral calcifications. Consider a passed ureteral stone. Cannot exclude urinary tr act infection.The left kidney is normal. There is no evidence of free air. There is no evidence of free fluid in the upper abdomen. CT PELVIS: The small bowel is normal in caliber. There is no evidence of intestinal obstruction. There is no erick dence of a colonic abnormality. A normal appendix is identified. There is no evidence of distention or periappendiceal inflammation to suggest appendicitis. The bladder appears unremarkable. No significant free fluid in the pelvis. Degenerative disc disease L5-S1.. IMPRESSION: Fatty infiltration of the liver Cholecystectomy No definite obstructive uropathy. Right ureteral ectasia cannot exclude urinary tract infection. No evidence of intestinal obstruction. Normal appendix Remainder of findings as described above. This report was dictated using voice recognition software. ELECTRONICALLY SIGNED BY: Vandana Rainey MD Sep 13, 2020 10:46:48 PM [facility] [employer] This report is intended for review by the ordering physician only, in accordance of law. If you recei ve this report in error, please call [facility] at [phone]. FINAL REPORT CT ABDOMEN AND PELVIS WITH CONTRAST: Date: 09/13/[address] of the abdomen and pelvis was performed for evaluation of left-sided pain. Comparison made with prior study dated 07/30/2015. Liver is mildly enlarged and has diffuse fatty infiltration. No focal hepatic lesions were seen and t here are no dilated intrahepatic ducts. The patient has had a prior cholecystectomy. The spleen, panc reas, adrenal glands, kidneys, and aorta showed no acute findings. The patient's right ureter is slig htly larger than the left, particularly in its lower half. Nevertheless, no renal or ureteral stones were seen. As my understanding is the patient's pain is left-sided, this finding may not be significa nt. The bowel shows no distention or wall thickening. At most, some of the loops of small bowel are mildl y prominent and fluid-filled, but there is certainly no sign of ranjit obstruction. No free air or aura e fluid seen. CT of the pelvis shows no pelvic masses, fluid collections, or inflammatory changes. IMPRESSION: 1. Mild hepatic enlargement with diffuse fatty infiltration of the liver. 2. No acute abdominal findings, aside for some minimal prominence of some loops of small bowel with fluid, but there is no sign of obstruction or inflammatory change around bowel. 3. Right ureter is somewhat more prominent in size than the left, but this finding is probably not s ignificant given that the symptoms are left-sided pain. Report in agreement with preliminary reading by [facility]. POS: [facility]
== END 2020-09-13 23:20 | disposition home or self-care (01) ==
LOC: BURERS 21:24
DX: R10.12 Left upper quadrant pain (principal); E11.9 Type 2 diabetes mellitus without complications; K21.9 Gastro-esophageal reflux disease without esophagitis; I11.0 Hypertensive heart disease with heart failure; I50.9 Heart failure, unspecified; E78.5 Hyperlipidemia, unspecified; E78.00 Pure hypercholesterolemia, unspecified
CPT/HCPCS: 74177; 80053; 80306; 80307; 81003; 83605; 83690; 84484; 85025; 85610; 85730; 93005; 94760; 96374; 96375; C9113; J1200; J2270; Q0163; Q9967

== ENCOUNTER 2021-07-25 14:44 | Emergency (ER) | payer MEDICARE, SELFPAY | END 2021-07-25 15:05 | disposition home or self-care (01) | LOC: BURERS 14:44 | DX: S01.01XA Laceration without foreign body of scalp, initial encounter (principal); E11.9 Type 2 diabetes mellitus without complications; K21.9 Gastro-esophageal reflux disease without esophagitis; E78.5 Hyperlipidemia, unspecified; E78.00 Pure hypercholesterolemia, unspecified; I11.0 Hypertensive heart disease with heart failure; I50.9 Heart failure, unspecified; F17.220 Nicotine dependence, chewing tobacco, uncomplicated; W45.8XXA Other foreign body or object entering through skin, initial encounter | CPT/HCPCS: 12001 ==

== ENCOUNTER 2022-03-19 08:05 | Emergency (ER) | payer MEDICARE ==
[2022-03-19] MEDS ORDERED: Morphine 4 MG/ML VIAL ONE ×2 (08:15→08:46)
[2022-03-19] MEDS ORDERED: Ketorolac Tromethamine 30 MG/ML VIAL ONE (08:46)
[2022-03-19 09:23] LABS: ALT (SGPT) 69 U/L (8-55); AST (SGOT) 52 U/L (5-34); Albumin 4.3 g/dL (3.5-5.0); Alkaline Phosphatase 115 U/L (40-110); Anion Gap 18 mmol/L (10-20); BUN (Urea Nitrogen) 16 mg/dL (8.9-20.6); Bilirubin, Total 0.6 mg/dL (0.2-1.2); Calc. Creatinine Clearance 0 mL/min (70-130); Calcium 9.5 mg/dL (7.8-10.44); Carbon Dioxide 29 mmol/L (22-29); Chloride 91 mmol/L (98-107); Globulin 3.5 g/dL (2.4-3.5); Glucose 266 mg/dL (70-105); Lipase 44 U/L (8-78); Potassium 4.3 mmol/L (3.5-5.1); Protein, Total 7.8 g/dL (6.0-8.3); Sodium 134 mmol/L (136-145)
[2022-03-19 09:24] LABS: #Basophils 0.2 thou/uL (0.0-0.2); #Eosinphils 0.6 thou/uL (0.0-0.7); #Lymphocytes 2.8 thou/uL (1.20-3.40); #Monocytes 0.7 thou/uL (0.11-0.59); #Neutrophils 12.8 thou/uL (1.40-6.50); %Basophils 1.1 % (0.0-1.0); %Eosinophils 3.7 % (0.0-10.0); %Lymphocytes 16.5 % (21.0-51.0); %Monocytes 4.3 % (0.0-10.0); %Neutrophils 74.5 % (42.0-75.0); Hemoglobin 16.9 g/dL (14.0-18.0); Mean Corpuscular HGB CONC 35.4 g/dL (32.0-36.0); Mean Corpuscular Hemoglobin 31.8 pg (27.0-31.0); Mean Platelet Volume 6.5 fL (7.4-10.4); Platelet Count 246 thou/uL (130-400); RBC Distribution Width 11.8 % (11.5-14.5); Red Blood Cell (RBC) Count 5.29 mill/uL (4.70-6.10); White Blood Cell (WBC) Count 17.2 thou/uL (4.8-10.8)
[2022-03-19 09:53] LABS: Bilirubin Negative (Negative); Blood, Urine Large (Negative); Clarity Cloudy (Clear); Glucose, Urine (Dipstick) 250 mg/dL (Negative); Ketone, Urine Negative (Negative); Leukocyte Negative (Negative); Nitrite Negative (Negative); Protein, Urine (Dipstick) 100 mg/dL (Neg-Trace); Specific Gravity, Urine 1.015 (1.005-1.030); Urobilinogen 0.2 mg/dL (Less than 2)
[2022-03-19 10:08] LABS: Bacteria/HPF Rare-Few HPF (None Seen); RBC/HPF Greater than 50 HPF (0-3); Squamous Epithelial 0-3 HPF (0-3); WBC/HPF 0-3 HPF (0-3)
[2022-03-19] MEDS ORDERED: cefTRIAXone\\ROCEPHIN 1 GM VIAL ONE (10:15)
== END 2022-03-19 10:28 | disposition home or self-care (01) ==
LOC: BURERS 08:05
DX: N10 Acute pyelonephritis (principal); I11.0 Hypertensive heart disease with heart failure; I50.9 Heart failure, unspecified; K21.9 Gastro-esophageal reflux disease without esophagitis; E78.5 Hyperlipidemia, unspecified; E78.00 Pure hypercholesterolemia, unspecified; F17.220 Nicotine dependence, chewing tobacco, uncomplicated; E11.65 Type 2 diabetes mellitus with hyperglycemia
CPT/HCPCS: 74176; 80053; 81003; 81015; 83605; 83690; 84484; 85025; 87086; 93005; 96361; 96372; 96374; 96375; 96376; J0696; J1885; J2270

== ENCOUNTER 2023-08-28 09:05 | Outpatient (CLI) | payer MEDICARE | END 2023-08-28 09:06 | disposition home or self-care (01) | LOC: BURRAD 09:05 | PROVIDERS: ATTEND Family Medicine | DX: J22 Unspecified acute lower respiratory infection (principal); J98.01 Acute bronchospasm | CPT/HCPCS: 71046 ==